=== PATIENT | female | born 1940 | race Caucasian/White ===

== ENCOUNTER → 2017-05-21 | Outpatient (CLI) | payer OTHER, BC | LOC: BHFA 11:00 | PROVIDERS: ATTEND Internal Medicine Cardiovascular Disease | DX: R07.9 Chest pain, unspecified (principal); R06.02 Shortness of breath ==

== ENCOUNTER 2017-07-26 11:09 | Emergency (ER) | payer OTHER, BC ==
--- NOTE | 2017-07-26 11:21 | CPEKG ---
Heart Rate: 71 RR Interval: 845 P-R Interval: 156 QRSD Interval: 84 QT Interval: 396 QTC Interval: 431 P [place]: 30 QRS [place]: 13 T Wave [place]: 38 EKG Severity - NORMAL ECG - EKG Impression: SINUS RHYTHM Electronically Signed By: Jose Deras 26-Jul-2017 13:41:42
[2017-07-26] MEDS ORDERED: ACETAMINOPHEN 500 MG TAB PO ONE (11:32)
--- NOTE | 2017-07-26 11:33 | EDPHY ---
H & P Stated Complaint: LOWER RIB PAIN W/ INHALATION Time Seen by Provider: 07/26/17 11:18 HPI/ROS: Chief Complaint: Chest pain, cough HPI: 77-year-old woman presenting with 2 weeks of upper respiratory symptoms with cough productive of greenish sputum. Patient was seen by her primary care physician earlier this week and started on Levaquin. Patient woke this morning of foreign morning with cough and eloped right lower chest wall pain. It hurts to cough and hurts to take a deep breath. No substernal chest pain. No worsening dyspnea on exertion. No nausea or vomiting. No abdominal pain. No lightheadedness or fainting. She is not taking any medications. ROS: 10 point Review of Systems is negative except as noted in the HPI. PMH: Mitral valve prolapse, chronic back pain Social History: No smoking, no alcohol, no recreational drug use Family History: non-contributory Physical Exam: Gen: Awake, Alert, No Distress HEENT: Nose: no rhinorrhea Eyes: PERRLA, EOMI Mouth: Moist mucosa Neck: Supple, no JVD Chest: nontender, lungs clear to auscultation Heart: S1, S2 normal, no murmur Abd: Soft, non-tender, no guarding Back: no CVA tenderness, no midline tenderness Ext: no edema, non-tender Skin: no rash Neuro: CN II-XII intact, Sensation grossly intact, Strength 5/5 in bilateral upper and lower extremities - Personal History Current Tetanus Diphtheria and Acellular Pertussis (TDAP): Yes Tetanus Vaccine Date: 2005 - Medical/Surgical History Hx Asthma: Yes Hx Chronic Respiratory Disease: No Hx Diabetes: No Hx Cardiac Disease: Yes Hx Cirrhosis: No Hx Alcoholism: No Hx HIV/AIDS: No Hx Splenectomy or Spleen Trauma: No Other PMH: BACK SURGERIES, APPY, JEFF, BILAT MASTECTOMY/RECONSTRUCTION, BILAT CATARACTS, HYSTERECTOMY, PTSD, GERD, HYPOTHYROID, HTN, PETIT MAL SIEZURES, 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, LEFT KNEE REPLACEMENT, PROLAPS MITRAL VALVE - Social History Smoking Status: Former smoker Constitutional: Initial Vital Signs Temperature (C) 36.4 C 07/26/17 11:17 Heart Rate 72 07/26/17 11:17 Respiratory Rate 18 07/26/17 11:17 Blood Pressure 150/74 H 07/26/17 11:17 O2 Sat (%) 98 01/25/18 11:17 O2 Delivery Mode Room Air Allergies/Adverse Reactions: codeine [Codeine] Allergy (Intermediate, Verified 03/09/16 20:28) iodine [Iodine] Allergy (Intermediate, Verified 03/09/16 20:28) Hives povidone-iodine [From Betadine] Allergy (Intermediate, Verified 03/09/16 20:28) soap [From Betadine] Allergy (Intermediate, Verified 03/09/16 20:28) Sulfa (Sulfonamide Antibiotics) Allergy (Intermediate, Verified 03/09/16 20:28) Hives butorphanol tartrate [From Stadol] Allergy (Verified 03/09/16 20:28) meperidine HCl [From Demerol] Allergy (Verified 03/09/16 20:28) morphine Allergy (Verified 03/09/16 20:28) Home Medications: Medication Instructions Recorded Propranolol HCl [Inderal] 10 mg PO 01/05/11 Venlafaxine HCl [Effexor] 100 mg PO 01/05/11 buPROPion SR [Wellbutrin] 150 mg PO 01/05/11 Dexalant 03/19/13 Thyroxine 03/19/13 Nortriptyline HCl 40 mg PO 02/07/14 Disk Vent 06/20/14 Preservision Softgel 06/20/14 Hydrocodone/APAP 5/325 [[place] 1 - 2 tab PO Q4H PRN #20 tab 07/31/14 5/325 (RX)] LAMOTRIGINE 07/31/14 Medical Decision Making - Diagnostics EKG Interpretation: ECG time 11:20 a.m., sinus rhythm with a rate of 71, normal axis, normal intervals, no acute ST or T-wave changes. Impression: Normal ECG. Imaging Results: Chest x-ray shows no infiltrates, unchanged from prior. My interpretation. Imaging: I viewed and interpreted images myself ED Course/Re-evaluation: 77-year-old with left lower rib pain with inspiration. Cough for 2 weeks. She has a leukocytosis but no left shift. No obvious infiltrates or abnormalities on her chest x-ray. D-dimer is 0.52 however this falls within normal limits for age adjustment for her age. Oxygen saturations are 98% on room air. She has a negative troponin. Normal ECG. She had a negative influenza test by her primary care physician recently. She has had improvement with Tylenol. Will discharge with prescription for oral analgesia, follow up with primary care physician. - Data Points Laboratory Results: Laboratory Results 07/26/17 11:30 07/26/17 11:30 07/26/17 07/26/17 07/26/17 11:30 11:30 11:30 WBC 12.85 10^3/uL H 10^3/uL (3.80-9.50) RBC 4.47 10^6/uL 10^6/uL (4.18-5.33) Hgb 13.7 g/dL g/dL (12.6-16.3) Hct 39.5 % % (38.0-47.0) MCV 88.4 fL fL (81.5-99.8) MCH 30.6 pg pg (27.9-34.1) MCHC 34.7 g/dL g/dL (32.4-36.7) RDW 12.2 % % (11.5-15.2) Plt Count 271 10^3/uL 10^3/uL (150-400) MPV 9.4 fL fL (8.7-11.7) Neut % (Auto) 67.0 % % (39.3-74.2) Lymph % (Auto) 23.7 % % (15.0-45.0) [place] % (Auto) 7.5 % % (4.5-13.0) Eos % (Auto) 1.2 % % (0.6-7.6) Baso % (Auto) 0.2 % L % (0.3-1.7) Nucleat RBC Rel Count 0.0 % % (0.0-0.2) Absolute Neuts (auto) 8.60 10^3/uL H 10^3/uL (1.70-6.50) Absolute Lymphs (auto) 3.05 10^3/uL H 10^3/uL (1.00-3.00) Absolute Monos (auto) 0.96 10^3/uL H 10^3/uL (0.30-0.80) Absolute Eos (auto) 0.16 10^3/uL 10^3/uL (0.03-0.40) Absolute Basos (auto) 0.03 10^3/uL 10^3/uL (0.02-0.10) Absolute Nucleated RBC 0.00 10^3/uL 10^3/uL (0-0.01) Immature Gran % 0.4 % % (0.0-1.1) Immature Gran # 0.05 10^3/uL 10^3/uL (0.00-0.10) D-Dimer 0.52 ug/mLFEU H ug/mLFEU (0.00-0.50) Sodium 143 mEq/L mEq/L (135-145) Potassium 4.5 mEq/L mEq/L (3.5-5.2) Chloride 103 mEq/L mEq/L (97-110) Carbon Dioxide 23 mEq/l mEq/l (22-31) Anion Gap 17 mEq/L H mEq/L (8-16) BUN 15 mg/dL mg/dL (7-23) Creatinine 1.0 mg/dL mg/dL (0.6-1.0) Estimated GFR 54 Glucose 96 mg/dL mg/dL (70-100) Calcium 9.5 mg/dL mg/dL (8.5-10.4) Troponin I 0.014 ng/mL ng/mL (0.000-0.034) Medications Given: Discontinued Medications Acetaminophen (Tylenol) 1,000 mg PO EDNOW ONE Stop: 07/26/17 11:33 Last Admin: 07/26/17 11:41 Dose: 1,000 mg Departure - Departure Disposition: Home, Routine, Self-Care Clinical Impression: Chest wall pain Condition: Good Instructions: Chest Wall Pain (ED) Additional Instructions: Continue taking acetaminophen as needed for pain. Follow up with your primary care physician for further evaluation in 3-4 days if symptoms are not improving. Return to the emergency department for increasing chest pain, shortness of breath, worsening cough, lightheadedness, fainting, or any other concerns. Referrals: Laure Melgar MD [Primary Care Provider] - As per Instructions
[2017-07-26 11:42] LABS: PLATELET COUNT 271 10^3/uL (150-400)
[2017-07-26 13:17] VITALS: BP 134/94; PULSE 70; RESP 16; O2SAT 97
[2017-07-26 13:19] VITALS: TEMP 98.6
== END 2017-07-26 13:04 | disposition home or self-care (01) ==
LOC: CED 11:09
DX: R07.89 Other chest pain (principal); J45.909 Unspecified asthma, uncomplicated; I10 Essential (primary) hypertension; Z87.891 Personal history of nicotine dependence
CPT/HCPCS: 71046-PO; 80048-PO; 84484-PO; 85025-PO; 85378-PO